=== PATIENT | female | born 1960 | race Caucasian/White ===

== ENCOUNTER 2020-08-23 10:35 | Emergency (ER) | payer OTHER, SELFPAY ==
[2020-08-23 10:53] VITALS: BP 156/67; PULSE 88; RESP 18; TEMP 36; O2SAT 99
--- NOTE | 2020-08-23 10:59 | ED.GENADULT ---
HPI - General Adult General Chief complaint: Upper Respiratory Infection Stated complaint: Trouble Swallowing Time Seen by Provider: 08/23/20 10:55 Source: patient and RN notes reviewed Mode of arrival: ambulatory Limitations: no limitations History of Present Illness HPI narrative: 60-year-old female presents to the [facility] with complaints of a sore throat for 5 days. Patient reports that she has had bumps on the back of her tongue and painful swallowing. Had a telemed meeting with primary care yesterday and was told it was just allergies. States that she does have pain with swallowing. Denies any fevers. Is maintaining her own saliva. Took 1 Claritin yesterday and states it did not make her better Related Data Home Medications Medication Instructions Recorded Confirmed acetaminophen [Tylenol] 1,000 mg PO 08/23/20 aspirin [Adult Aspirin] PO 08/23/20 atorvastatin 08/23/20 clopidogrel [Plavix] 08/23/20 duloxetine [Cymbalta] mg PO 08/23/20 empagliflozin [Jardiance] mg 08/23/20 folic acid 08/23/20 gabapentin 300 mg PO BID 08/23/20 08/23/20 glucagon mg 08/23/20 insulin glargine [Lantus U-100 70 unit SUBCUT 08/23/20 Insulin] insulin lispro [Humalog U-100 30 unit SUBCUT 08/23/20 Insulin] levothyroxine 08/23/20 liraglutide [Victoza 2-Amador] mg SUBCUT 08/23/20 melatonin mg 08/23/20 metformin mg PO 08/23/20 nitroglycerin mg 08/23/20 omega [id number] oil [Fish Oil] cap PO 08/23/20 omeprazole [Prilosec] 08/23/20 ondansetron HCl [Zofran] 08/23/20 Allergies Allergy/AdvReac Type Severity Reaction Status Date / Time No Known Allergies Allergy Verified 08/23/20 10:49 Review of Systems Review of Systems: Narrative: CONSTITUTIONAL: Denies fever, chills, or sweats. EYES: Denies visual changes, redness, or discharge. ENT: Denies rhinorrhea, congestion, or otalgia. Reports sore throat CARDIOVASCULAR: Denies chest pain, palpitations, or edema. RESPIRATORY: Denies cough or dyspnea. GASTROINTESTINAL: Denies abdominal pain, nausea, vomiting, or diarrhea. MUSCULOSKELETAL: Denies back pain, joint pain, or myalgia. NEUROLOGIC: Denies headache, numbness, or weakness. PSYCHIATRIC: Denies anxiety or depression. All other systems reviewed are negative, except as documented in HPI. PMFSH Social History Social History Gender identity (if verbalized by the patient): Female Comments At the time of my signature, I reviewed and agree with the nursing past medical, surgical, social, and family history. There is no relevant family history pertinent to the patient complaint. Exam Narrative: Exam Narrative: GENERAL: This is a well-nourished, well-developed patient, in no apparent distress. HEAD: normocephalic, atraumatic. EYES: PERRL. Sclera clear/white. Vision is grossly intact. EARS: External ears normal, auditory canals clear and without drainage, TMs normal without perforation. Hearing grossly intact. NOSE: External nose normal with no obvious nasal discharge, nares without redness, no rhinorrhea. THROAT: Mucous membranes moist. Uvula is midline. Tonsils +2-3 with thick yellow exudate. NECK: Neck supple, non-tender with lymphadenopathy bilateral cervical chain, masses or thyromegaly. CARDIOVASCULAR: Regular rate and rhythm without murmurs, gallops, or rubs. RESPIRATORY: Clear to auscultation. Breath sounds equal bilaterally. No wheezes, rales, or rhonchi. GASTROINTESTINAL: Abdomen soft, non-tender, nondistended. SKIN: warm, intact with no suspicious lesions or rash, good texture and turgor. NEURO: awake, alert, and oriented to person, place and time. There were no obvious focal neurologic abnormalities. EXTREMITIES: No joint tenderness, effusion, or edema noted. BACK: Nontender without deformity. Course Vital Signs Vital signs: Vital Signs Temperature 96.8 F L 08/23/20 10:53 Pulse Rate 88 08/23/20 10:53 Respiratory Rate 18 08/23/20 10:53 B
[2020-08-23 11:01] VITALS: BP 156/67; PULSE 88; RESP 18; TEMP 36; O2SAT 99
== END 2020-08-23 11:10 | disposition home or self-care (01) ==
PROVIDERS: Emergency Provider Nurse Practitioner
DX: J03.90 Acute tonsillitis, unspecified (principal)
CPT/HCPCS: 87081; 87880; 99203; G0463